=== PATIENT | male | born 1975 | race Caucasian/White ===

== ENCOUNTER 2019-05-05 16:55 | Outpatient (REF) | payer OTHER, SELFPAY ==
[2019-05-05 21:31] LABS: Calculated LDL 126 mg/dL; Cholesterol 216 mg/dL (50-200); HDL Cholesterol 67 mg/dL (40-60); Triglyceride 119 mg/dL (30-150)
== END 2019-05-05 17:15 ==
LOC: NCHCN 16:55
PROVIDERS: PCP Internal Medicine; Visit Provider Internal Medicine
DX: Z13.220 Encounter for screening for lipoid disorders (principal)
CPT/HCPCS: 80061

== ENCOUNTER 2025-02-24 09:54 | Outpatient (REF) | payer SELFPAY ==
[2025-02-24 15:31] LABS: ALT 27 U/L (16-63); AST 30 U/L (15-37); Albumin 4.1 g/dL (3.4-5.0); Alkaline Phosphatase 67 U/L (46-116); Anion Gap 9.6 mmol/L (3-11); BUN 16 mg/dL (7-18); Bilirubin, Total 0.8 mg/dL (0.2-1.0); CO2 28.4 mmol/L (21.0-32.0); Calcium 9.5 mg/dL (8.5-10.1); Calculated LDL 158 mg/dL (<100); Chloride 102 mmol/L (98-107); Cholesterol 258 mg/dL (<200); Estimated GFR 93.42 (mL/min/1.73m2); Glucose 88 mg/dL (74-106); HDL Cholesterol 67 mg/dL (>or=40); Potassium 3.9 mmol/L (3.5-5.1); Sodium 140 mmol/L (136-145); Total Protein 7.3 g/dL (6.4-8.2); Triglyceride 166 mg/dL (<150)
== END 2025-02-24 09:55 | disposition home or self-care (01) ==
LOC: NCHCN 09:54
PROVIDERS: PCP Internal Medicine; Visit Provider Internal Medicine
DX: Z00.00 Encounter for general adult medical examination without abnormal findings (principal)
CPT/HCPCS: 80053; 80061